=== PATIENT | female | born 1950 | race Caucasian/White ===

== ENCOUNTER 2016-07-18 13:32 | Emergency (ER) | payer MEDICARE, OTHER ==
[2016-07-18] MEDS ORDERED: Aspirin 325 MG TAB ONE (14:04)
[2016-07-18] MEDS ORDERED: Nitroglycerin 0.4 MG TAB 1 EACH ONE (14:04)
[2016-07-18 14:16] LABS: #Basophils 0.1 thou/uL (0.0-0.2); #Eosinphils 0.2 thou/uL (0.0-0.7); #Lymphocytes 3.6 thou/uL (1.20-3.40); #Monocytes 0.6 thou/uL (0.11-0.59); #Neutrophils 4.5 thou/uL (1.40-6.50); %Eosinophils 1.8 % (0.0-10.0); %Lymphocytes 40.4 % (21.0-51.0); %Monocytes 6.2 % (0.0-10.0); %Neutrophils 50.7 % (42.0-75.0); Hemoglobin 14.2 g/dL (12.0-16.0); Mean Corpuscular HGB CONC 34.7 g/dL (32.0-36.0); Mean Corpuscular Hemoglobin 30.6 pg (27.0-31.0); Mean Corpuscular Volume 88.2 fl (81.0-99.0); Mean Platelet Volume 9.1 fL (7.4-10.4); Platelet Count 231 thou/uL (130-400); RBC Distribution Width 12.6 % (11.5-14.5); Red Blood Cell (RBC) Count 4.65 mill/uL (4.20-5.40); White Blood Cell (WBC) Count 8.9 thou/uL (4.8-10.8)
--- NOTE | 2016-07-18 14:16 | RAD ---
PORTABLE AP CHEST X-RAY 07/18/2016 HISTORY: Chest pain. COMPARISON: 02/17/2016 FINDINGS: Post-surgical changes related to CABG. Cardiac silhouette is magnified by projection. Pulmonary va sculature are within normal limits. The lungs remain clear. There has been no interval change from the prior exam. IMPRESSION: No acute cardiopulmonary process. POS: [facility]
[2016-07-18 14:35] LABS: PTT 26.9 SEC (22.9-36.1); Prothrombin Time 13.6 SEC (12.0-14.7)
[2016-07-18 14:38] LABS: ALT (SGPT) 32 U/L (8-55); AST (SGOT) 31 U/L (5-34); Albumin 3.8 g/dL (3.4-4.8); Alkaline Phosphatase 96 U/L (40-150); Anion Gap 13 mmol/L (10-20); BUN (Urea Nitrogen) 12 mg/dL (9.8-20.1); Bilirubin, Total 0.3 mg/dL (0.2-1.2); CK (CPK) 59 U/L (29-168); Calc. Creatinine Clearance 0 mL/min (70-130); Calcium 9.2 mg/dL (7.8-10.44); Carbon Dioxide 24 mmol/L (23-31); Chloride 108 mmol/L (98-107); Estimated GFR-MDRD 76; Globulin 2.9 g/dL (2.4-3.5); Glucose 100 mg/dL (80-115); Potassium 4.3 mmol/L (3.5-5.1); Protein, Total 6.7 g/dL (6.0-8.3); Sodium 141 mmol/L (136-145)
[2016-07-18 14:39] LABS: CKMB 1.3 ng/mL (0-6.6); Troponin I Less than 0.010 ng/mL (< 0.028)
[2016-07-18 15:33] LABS: Clarity Clear (Clear); Specific Gravity, Urine 1.015 (1.005-1.030)
[2016-07-18 15:34] LABS: Bilirubin Negative (Negative); Blood, Urine Negative (Negative); Glucose, Urine (Dipstick) Negative (Negative); Leukocyte Negative (Negative); Nitrite Negative (Negative); Protein, Urine (Dipstick) Negative (Neg-Trace); Urobilinogen 0.2 mg/dL (0.2-1.0)
[2016-07-18 15:37] LABS: Bacteria/HPF None Seen HPF (None Seen); RBC/HPF 0-3 HPF (0-3); Squamous Epithelial 0-3 HPF (0-3); WBC/HPF None Seen HPF (0-3)
== END 2016-07-18 16:22 | disposition short-term general hospital (02) ==
LOC: MADERS 13:32
DX: I20.0 Unstable angina (principal); F41.9 Anxiety disorder, unspecified; J44.9 Chronic obstructive pulmonary disease, unspecified; F32.9 Major depressive disorder, single episode, unspecified; E78.4 Other hyperlipidemia; I11.0 Hypertensive heart disease with heart failure; I50.9 Heart failure, unspecified; I25.2 Old myocardial infarction; Z87.891 Personal history of nicotine dependence; Z79.82 Long term (current) use of aspirin; Z79.899 Other long term (current) drug therapy; Z79.02 Long term (current) use of antithrombotics/antiplatelets
CPT/HCPCS: 71010; 80053; 81001; 82550; 82553; 83735; 83880; 84484; 85025; 85610; 85730; 93005; 94760

== ENCOUNTER 2017-02-15 17:43 | Emergency (ER) | payer MEDICARE, MEDICAID ==
[2017-02-15 18:06] LABS: Hemoglobin 13.5 g/dL (12.0-16.0); Mean Corpuscular HGB CONC 32.5 g/dL (32.0-36.0); Mean Corpuscular Hemoglobin 29.3 pg (27.0-31.0); Mean Platelet Volume 8.9 fL (7.4-10.4); Platelet Count 296 thou/uL (130-400); RBC Distribution Width 12.8 % (11.5-14.5); Red Blood Cell (RBC) Count 4.61 mill/uL (4.20-5.40); White Blood Cell (WBC) Count 15.8 thou/uL (4.8-10.8)
[2017-02-15 18:08] LABS: INR-International Normal Ratio 0.9; PTT 26.3 SEC (22.9-36.1); Prothrombin Time 12.7 SEC (12.0-14.7)
[2017-02-15 18:19] LABS: ALT (SGPT) 21 U/L (8-55); AST (SGOT) 21 U/L (5-34); Albumin 4.1 g/dL (3.4-4.8); Alkaline Phosphatase 99 U/L (40-150); Anion Gap 18 mmol/L (10-20); BUN (Urea Nitrogen) 13 mg/dL (9.8-20.1); Band 5 % (5-11); Bilirubin, Total 0.2 mg/dL (0.2-1.2); Calc. Creatinine Clearance 0 mL/min (70-130); Calcium 9.5 mg/dL (7.8-10.44); Carbon Dioxide 23 mmol/L (23-31); Chloride 106 mmol/L (98-107); Estimated GFR-MDRD 67; Globulin 3.3 g/dL (2.4-3.5); Glucose 87 mg/dL (80-115); Lymphocytes 17 % (21-51); MDiff Complete? YES; Manual Diff?? YES; Monocytes 4 % (0-10); Neutrophil 55 % (42-75); Potassium 3.9 mmol/L (3.5-5.1); Protein, Total 7.4 g/dL (6.0-8.3); Reactive Lymphocytes 19 % (0-10); Sodium 143 mmol/L (136-145)
[2017-02-15 18:20] LABS: CKMB 1.4 ng/mL (0-6.6); PLT Morphology Comment Appears Adequate; RBC Morphology Normal; Troponin I Less than 0.010 ng/mL (< 0.028)
--- NOTE | 2017-02-15 18:21 | CT ---
CT BRAIN 02/15/17 PROVIDED CLINICAL HISTORY: Altered mental status. COMPARISON: 02/17/16 FINDINGS: The ventricular system appears normal in size and morphology. There is no evidence for intracranial h emorrhage or mass effect. There is no evidence for intracranial hemorrhage or mass effect. The extrac ranial soft tissues and osseous structures demonstrate no evidence for an acute abnormality. IMPRESSION: No evidence for intracranial hemorrhage or mass effect. These findings are communicated to Dr. Davies in the Emergency Department at 6:97 p.m., 02/15/17. Code CR POS: [facility]
--- NOTE | 2017-02-15 19:09 | RAD ---
PORTABLE CHEST 02/15/17 PROVIDED CLINICAL HISTORY: Chest pain. FINDINGS: Comparison is made with the study dated 07/18/16. Evaluation is limited by patient body habitus. The cardiac and mediastinal silhouette is unchanged in appearance. No focal consolidation, pleural fluid or pneumothorax apparent. IMPRESSION: No evidence for an acute cardiopulmonary process. POS: [facility]
== END 2017-02-15 18:52 | disposition short-term general hospital (02) ==
LOC: MADERS 17:43
DX: R41.82 Altered mental status, unspecified (principal); I11.0 Hypertensive heart disease with heart failure; I50.9 Heart failure, unspecified; I25.2 Old myocardial infarction; E78.5 Hyperlipidemia, unspecified; J44.9 Chronic obstructive pulmonary disease, unspecified; F32.9 Major depressive disorder, single episode, unspecified; F41.9 Anxiety disorder, unspecified; Z87.891 Personal history of nicotine dependence; Z79.82 Long term (current) use of aspirin; Z79.899 Other long term (current) drug therapy; Z79.02 Long term (current) use of antithrombotics/antiplatelets
CPT/HCPCS: 36416; 70450; 71010; 80053; 82553; 84484; 85025; 85610; 85730; 93005

== ENCOUNTER 2019-09-25 06:37 | Emergency (ER) | payer MEDICARE, OTHER ==
[2019-09-25] MEDS ORDERED: Aspirin Chewable 81 MG TAB ONE (06:59)
[2019-09-25] MEDS ORDERED: Nitroglycerin 0.4 MG TAB 1 EACH ONE ×2 (06:59→07:29)
[2019-09-25 07:05] LABS: #Basophils 0.1 thou/uL (0.0-0.2); #Eosinphils 0.2 thou/uL (0.0-0.7); #Lymphocytes 3.8 thou/uL (1.20-3.40); #Monocytes 0.8 thou/uL (0.11-0.59); #Neutrophils 3.9 thou/uL (1.40-6.50); %Basophils 1.5 % (0.0-1.0); %Lymphocytes 42.9 % (21.0-51.0); %Monocytes 8.9 % (0.0-10.0); %Neutrophils 44.8 % (42.0-75.0); Hemoglobin 12.1 g/dL (12.0-16.0); Mean Corpuscular HGB CONC 32.1 g/dL (32.0-36.0); Mean Corpuscular Hemoglobin 30.5 pg (27.0-31.0); Mean Platelet Volume 8.2 fL (7.4-10.4); Platelet Count 273 thou/uL (130-400); RBC Distribution Width 12.4 % (11.5-14.5); Red Blood Cell (RBC) Count 3.96 mill/uL (4.20-5.40); White Blood Cell (WBC) Count 8.8 thou/uL (4.8-10.8)
[2019-09-25 07:21] LABS: ALT (SGPT) 11 U/L (8-55); AST (SGOT) 12 U/L (5-34); Albumin 4.1 g/dL (3.4-4.8); Alkaline Phosphatase 65 U/L (40-110); Anion Gap 14 mmol/L (10-20); BUN (Urea Nitrogen) 13 mg/dL (9.8-20.1); Bilirubin, Total 0.2 mg/dL (0.2-1.2); CK (CPK) 53 U/L (29-168); Calc. Creatinine Clearance 0 mL/min (70-130); Calcium 8.7 mg/dL (7.8-10.44); Carbon Dioxide 25 mmol/L (23-31); Chloride 108 mmol/L (98-107); Estimated GFR-MDRD 66; Glucose 108 mg/dL (80-115); Potassium 3.7 mmol/L (3.5-5.1); Protein, Total 7.1 g/dL (6.0-8.3); Sodium 143 mmol/L (136-145)
[2019-09-25 07:23] LABS: CKMB 0.7 ng/mL (0-6.6)
[2019-09-25] MEDS ORDERED: Nitroglycerin 2% Ointment 1 INCH/1 GM Packet ONE (07:29)
--- NOTE | 2019-09-25 07:35 | RAD ---
RADIOGRAPH CHEST 1 VIEW: DATE: 09/25/2019 HISTORY: 68-year-old female with chest pain FINDINGS: There are no airspace densities, pulmonary edema, pneumothorax, or cardiomegaly. The lateral costophr enic angles are sharp. Signs of previous CABG. IMPRESSION: No acute cardiopulmonary findings.
== END 2019-09-25 08:50 | disposition short-term general hospital (02) ==
LOC: MADERS 06:37
DX: R07.9 Chest pain, unspecified (principal); I25.2 Old myocardial infarction; E78.5 Hyperlipidemia, unspecified; I11.0 Hypertensive heart disease with heart failure; I50.9 Heart failure, unspecified; J44.9 Chronic obstructive pulmonary disease, unspecified; F32.9 Major depressive disorder, single episode, unspecified; F41.9 Anxiety disorder, unspecified; G47.9 Sleep disorder, unspecified; Z87.891 Personal history of nicotine dependence; Z79.899 Other long term (current) drug therapy; Z79.82 Long term (current) use of aspirin
CPT/HCPCS: 71045; 80053; 82550; 82553; 83690; 83880; 84484; 85025; 93005; 94760

== ENCOUNTER 2020-04-06 16:59 | Emergency (ER) | payer MEDICARE, OTHER ==
[2020-04-06] MEDS ORDERED: Fluorescein Opthalmic Strip ONE (17:25)
--- NOTE | 2020-04-06 18:10 | CT ---
Head CT without contrast 04/06/2020: COMPARISON: 02/17/2016 HISTORY: Fall, head injury TECHNIQUE: Axial CT imaging at 5 mm intervals from vertex through skull base without contrast. Harper l and sagittal reformatted imaging obtained. FINDINGS: The visualized paranasal sinuses and mastoid air cells are well-aerated. There is no displa debra calvarial fracture. There is atherosclerotic calcification of the cavernous carotid arteries. Mild stable encephalomalacia noted within the cerebellum on the right. No intracranial hemorrhage, mi dline shift, mass effect, or ventricular enlargement. IMPRESSION: No intracranial hemorrhage or displaced calvarial fracture.
--- NOTE | 2020-04-06 18:16 | CT ---
CT of thecervical spine: 04/06/2020 COMPARISON:None available HISTORY:Injury, trauma, pain TECHNIQUE: Serial axial CT imaging at2.5 mm intervals from theskull base through the lung apices with out contrast. Coronal and sagittal reformatted imaging obtained Findings:The imaged lung apices are unremarkable. Midline sternotomy wires are present. The occipital condyles, dens, C1-2 articulation, craniocervical junction, and cervicothoracic junctio n demonstrate no acute findings. No cervical spine anterolisthesis or retrolisthesis. No prevertebral soft tissue swelling. There is a medialized retropharyngeal course of the proximal right internal carotid artery. At C3-4 there is bilateral uncovertebral osteophyte formation and anterior osteophyte. At C4-5 there is prominent left uncovertebral osteophyte formation with left-sided neural foraminal stenosis. At C5-6 there is bilateral neural foraminal stenosis, right greater than left, on the basis of prominent uncovertebral osteophyte formation. At C6-7 there is disc space narrowing with posterior and anterior osteophyte formation causing central canal stenosis with bilateral neural foraminal stenosis on the basis of facet and uncovertebral osteophyte formation. No displaced fracture or dislocation is seen. Impression:Multilevel cervical spine degenerative change. No acute fracture or dislocation is seen.
--- NOTE | 2020-04-06 18:31 | CT ---
CT of the facial bones: 04/06/2020 HISTORY: Facial pain, injury, right-sided blurred vision TECHNIQUE: Axial CT imaging at 2.5 mm intervals through the facial bones with coronal and sagittal re formatted imaging. FINDINGS: The frontal sinuses, maxillary sinuses, and sphenoid sinuses appear well aerated. The nasal bones and zygomatic arches appear intact. The pterygoid plates appear intact. No evidence f or a mandibular fracture is seen and there is no evidence for dislocation of the temporomandibular joints. The orbits/globes demonstrate a normal symmetric appearance. The coronal reformatted imaging demonstrates no evidence for fracture of the orbital floor or the med ial orbital wall on either side. IMPRESSION: No evidence for a fracture of the maxillofacial bones.
== END 2020-04-06 19:30 | disposition home or self-care (01) ==
LOC: MADERS 16:59
DX: S00.83XA Contusion of other part of head, initial encounter (principal); M25.511 Pain in right shoulder; H53.8 Other visual disturbances; I50.9 Heart failure, unspecified; E78.5 Hyperlipidemia, unspecified; I11.0 Hypertensive heart disease with heart failure; J44.9 Chronic obstructive pulmonary disease, unspecified; W01.0XXA Fall on same level from slipping, tripping and stumbling without subsequent striking against object, initial encounter; Z79.82 Long term (current) use of aspirin; Z79.899 Other long term (current) drug therapy; Z87.891 Personal history of nicotine dependence
CPT/HCPCS: 70450; 70486; 72125